=== PATIENT | female | born 1940 | race Caucasian/White ===

== ENCOUNTER 2016-06-30 02:23 | Emergency (ER) | payer SELFPAY ==
[~2016-06-30] VITALS: Ht 162.6 cm; Wt 71.0 kg
[2016-06-30 02:30] VITALS: Ht 162.6 cm; Wt 71.0 kg
--- NOTE | 2016-06-30 04:23 | ERA ---
ER Documentation Chief Complaint Date/Time DATE: 06/30/16 TIME: 04:21 Chief Complaint shloulder pain x 3 days, joint pain x 3 months HPI Patient describes pain has migrated from her left shoulder to her right shoulder and then to the neck over the past 2 weeks. Pt denies h/o MARCO A including overuse, strain, or trauma; Denies saddle peripheral neuro changes including numbness/weakness/tingling/etc.; denies fever, chills, night sweats, weight loss, or increase symptoms at night; denies h/o cardiovascular dz, disk herniation, spinal stenosis, fibromyalgia cancer, HIV, IVDU, arthritis or recent surgery. Pain worse with movement of head. Patient has taken Tylenol with minimal relief. ROS All systems reviewed and are negative except as per history of present illness. Medications Home Meds Active Scripts Naproxen* (Naprosyn*) 500 Mg Tablet, 500 MG PO BID Y for PAIN AND/OR INFLAMMATION, #30 TAB Prov:KEYONA NEFF PA-C 06/30/16 Discontinued Scripts Ibuprofen* (Motrin*) 600 Mg Tab, 600 MG PO Q6H Y for PAIN AND OR ELEVATED TEMP, #30 TAB Prov:KEYONA NEFF PA-C 06/30/16 Allergies Allergies: Coded Allergies: Penicillins (Verified Allergy, Unknown, 06/30/16) PMhx/Soc Medical and Surgical Hx: pt denies Surgical Hx History of Surgery: No Anesthesia Reaction: No Hx Neurological Disorder: No Hx Respiratory Disorders: No Hx Cardiac Disorders: Yes (HTN) Hx Psychiatric Problems: No Hx Miscellaneous Medical Probl: No Hx Alcohol Use: No Hx Substance Use: No Hx Tobacco Use: No Smoking Status: Never smoker Physical Exam Vitals Vital Signs Date Time Temp Pulse Resp B/P Pulse Ox O2 Delivery O2 Flow Rate FiO2 06/30/16 02:30 98.3 82 20 147/69 100 Physical Exam Const: Obese 75-year-old female. Head: Atraumatic Eyes: Normal Conjunctiva ENT: Normal External Ears, Nose and Mouth. Neck: Limited range of motion secondary to pain.. Range of motion improved on second evaluation. ~ No meningismus. Negative Brudzinski's and negative Kernig sign. Tenderness just to the right of the C7 spinous process. Resp: Clear to auscultation bilaterally Cardio: Regular rate and rhythm, no murmurs Abd: Soft, non tender, non distended. Normal bowel sounds Skin: No petechiae or rashes Back: No midline or flank tenderness Ext: No cyanosis, or edema Neur: Awake and alert Psych: Normal Mood and Affect Results 24 hrs Current Medications Medications (Trade) Dose Ordered Sig/Guilherme Route PRN Reason Start Time Stop Time Status Last Admin Dose Admin Acetaminophen/ Hydrocodone Bitart (Vinem[place] (5/325)) 1 tab ONCE ONCE PO 06/30/16 04:30 06/30/16 04:31 DC 06/30/16 04:21 Procedures/MDM Patient was worked up for chief complaint of neck stiffness. X-ray was taken and showed minimal listheses, mild vertebral degeneration and slight reversal of lordosis. Patient was given Vinem[place] for discomfort. No pain to bony structures in the cervical midline. Patient by next visit Burdette scales is cleared. Patient is stable and is ready to go home. Was prescribed ibuprofen but described an anxious reaction that makes it difficult for her sleep. The adverse reaction described gives no further description than just difficulty sleeping. Patient's vitals are stable and appears well and is able to ambulate. Patient's symptoms have improved since first arrival. Patient is requesting a prescription for Vinemont. I told the patient that we can give naproxen and if there is no adverse reaction to discontinue the medication and continue taking Tylenol. We will be giving discharge instructions with return precautions. Have expressed to the patient's the importance of returning to the ER if symptoms worsen or neuro symptoms develop; patient and family have verbally confirmed their understanding. I spoke with my attending and she agrees with the assessment and plan. Departure Diagnosis: Primary Impression: Cervical paraspinal muscle spasm Additional Impressions: Cervical strain Qualified Code: S16.1XXA - Cervical strain, initial encounter Osteoarthritis Qualified Code: M19.90 - Osteoarthritis, unspecified osteoarthritis type, unspecified site Condition: Stable Additional Instructions: Follow up with your PCP within the next 1-3 days for a more thorough evaluation and a possible referral to a specialist. Return the the emergency department immediately if symptoms worsen or change. If you have any questions regarding medications, ask your pharmacist or us before you leave. If any adverse reactions occur while taking your medications, discontinue the treatment and return to the emergency department immediately. Take your medications as directed, and complete the entire course of treatment. KEYONA NEFF PA-C June 30, 2016 04:23
[2016-06-30] MEDS ORDERED: HYDROCODONE/APAP (5/325) TAB PO ONE (04:30)
--- NOTE | 2016-06-30 06:17 | RADRPT ---
PROCEDURE: XR Cervical Spine. CLINICAL INDICATION: Neck pain TECHNIQUE: 3 views of the cervical spine were performed. [facility] COMPARISON: None. FINDINGS: There is mild degenerative changes cervical spine with osteophytes and endplate irregularities throu ghout. There is reversal of cervical lordosis which may be secondary to spasm or positioning. No p revertebral soft tissue swelling is seen. There is minimal grade 1 retrolisthesis at C4-5 and C5-6. Probable carotid artery calcification. Aortic calcification. IMPRESSION: Slight reversal of cervical lordosis and mild degenerative change with minor listheses. No definite fracture. Clinical clearance of the cervical spine is still advised. Aortic atherosclerosis. RPTAT: [facility] Physician Pauline Date Time Electronically viewed and signed by Physician Pauline on 06/30/2016 06:17 LE/
[2016-06-30] MEDS ORDERED: IBUP-1542 PO (07:10)
[2016-06-30] MEDS ORDERED: NAPR-260 PO (07:32)
[2016-06-30 07:36] VITALS: BP 152/70; PULSE 70; RESP 20; TEMP 98
== END 2016-06-30 07:38 | disposition home or self-care (01) ==
LOC: FTE 02:23
DX: S16.1XXA Strain of muscle, fascia and tendon at neck level, initial encounter (principal); M19.90 Unspecified osteoarthritis, unspecified site; I10 Essential (primary) hypertension; X58.XXXA Exposure to other specified factors, initial encounter; Y92.9 Unspecified place or not applicable
CPT/HCPCS: 72050